=== PATIENT | male | born 1965 | race Caucasian/White ===

== ENCOUNTER → 2016-11-27 | Outpatient (CLI) | payer OTHER ==
[~2016-11-27] MED LIST: DICL50TA4 PO; FEXO180T5 PO; FLUT100D IH; LISI10TA2 PO; LOSA100T6 PO; MONT10TA9 PO; OMEP40CA5 PO; SIMV10TA3 PO; TRIA10.8 NS
--- NOTE | 2016-11-28 03:05 | PAIN ---
DATE OF SERVICE: 11/27/2016 PROGRESS NOTE DIAGNOSES: Lumbar radiculopathy with lumbar herniated disk, spinal stenosis and lumbar degenerative disk disease. HISTORY OF PRESENT ILLNESS: The patient is a 51-year-old male who returns for followup status post lumbar epidural steroid injection x 2 with very good results. The patient reports his last result was about 80% improvement in the left leg pain, in his low back. It has been returning now. His last injection was 09/03/2016. The patient reports that it was returning over the past 1-2 weeks, before that was doing quite well, had increased his daily activity with greater ease and comfort, was sleeping better at night. This has begin to return now, again with some stinging and shooting pain in the left leg, mostly in the anterior aspect of the thigh, medial thigh, to the medial lower leg below the knee. The patient reports it is only on the left side, is a 3 on a scale of 10 with a 10/10 at its worse with a shocking sensation, worse with standing, walking, changing positions, better with sitting or lying down, but again has been waking her from sleep when he lies on his left side. The patient reports no new motor or sensory deficits, no new bowel or bladder incontinence, but still traveling pain from the low back into the anterolateral aspect of the hip and into the medial and anterior thigh and medial leg below the knee. PHYSICAL EXAMINATION: VITAL SIGNS: The patient's blood pressure is 132/90, pulse 81, respirations 18, temperature is 97.7 degrees Fahrenheit, height is 5 feet 8 inches and weighs 244 pounds. GENERAL: The patient is awake, alert, oriented, appropriate, very pleasant demeanor. HEENT: Shows normocephalic, atraumatic. Extraocular movements are intact and symmetrical. Oral cavity shows mucous membranes are moist and pink. Dentition is intact. NECK: Shows anterior throat supple without palpable lymphadenopathy noted. Swallow reflex is symmetrical. Neck shows full rotation and motion of the cervical spine without difficulty. CHEST: Shows normal on inspection. Breath sounds are clear to auscultation bilaterally. HEART: Shows S1, S2 clear. No murmurs are auscultated. ABDOMEN: Obese, soft, nontender, nondistended. No palpable organomegaly is noted. No rebound or guarding demonstrated. BACK: Shows spine grossly in midline. Lumbar paraspinous musculature shows symmetrical on inspection without evidence of atrophy or hypertrophy. With palpation is moderately tender with palpation bilaterally in the middle and lower distribution of paraspinous muscles, but only diffusely without radiation or trigger points noted. No tenderness over the sacrum or sacroiliac regions. The patient's lumbar spine shows full rotation and motion both laterally as well as extension and flexion without difficulty. EXTREMITIES: Lower extremities show deep tendon reflexes at 1+ in the patellar and tendo calcaneus tendons, are equal. Motor exam is approximately 5/5 with dorsiflexion, extension, quadriceps and hamstring flexion. With straight leg raises, positive straight leg raise on the left side at about 40-45 degrees. This decreased with knee flexion, but has negative straight leg raise on the right. PLAN: Options were discussed with the patient. The patient's old chart was reviewed as his current medication regimen and updated. Current review of systems updated today as well. We will preauthorize the patient for a lumbar epidural steroid injection with fluoroscopic guidance as he has done very well with these in the past with returning radicular pain on the left side and MRI scan showing herniated disk at the L3-L4 level. The patient will maintain his stretching and strengthening exercises and walking as best he can. We also discussed some weight loss strategies with the patient. He is looking into some health clubs to help with his as well. We will follow up in approximately one week and plan on lumbar epidural steroid injection at that time. BEBO JAY MD DR: EMIL/jocelyn JOB#: [id number] / [id number]
== END | disposition home or self-care (01) ==
LOC: PNCL 10:55
PROVIDERS: ATTEND Anesthesiology
DX: M51.16 Intervertebral disc disorders with radiculopathy, lumbar region (principal); M51.26 Other intervertebral disc displacement, lumbar region; M48.06 Spinal stenosis, lumbar region
CPT/HCPCS: 99212

== ENCOUNTER → 2016-12-11 | Outpatient (CLI) | payer OTHER ==
[~2016-12-11] MED LIST changes: +IOHEXOL 180 MG/ML 10 ML VIAL. ONE; +methylPREDNISolone ACETATE 40 MG/ML VIAL. ONE; +methylPREDNISolone ACETATE 80 MG/ML VIAL. ONE
--- NOTE | 2016-12-12 04:48 | PAIN ---
DATE OF SERVICE: 12/11/2016 PROGRESS NOTE FOR PAIN CLINIC DIAGNOSES: 1. Lumbar radiculopathy with lumbar herniated disk, spinal stenosis and lumbar degenerative disk disease. 2. Left meralgia paraesthetica. HISTORY OF PRESENT ILLNESS: The patient is a 51-year-old male who returns for followup status post lumbar epidural steroid injections, most recently on 09/03/2016. The patient reports he did well with this initially, ____ a 75-80% improvement, but the pain has returned in his left leg, mostly in the anterior lateral aspect of the thigh as previous. The patient reports no new motor or sensory deficits, no new bowel or bladder incontinence. Significant pain with walking, standing. Sitting relieves the pain almost 100%. He is having occasional pain when he is lying on his left side at night and waking him from sleep with a stabbing, shooting pain in the right anterior medial thigh on the left side. The patient reports it as a high quality with sharp pains as well. The patient reports no new motor or sensory deficits, no new bowel or bladder incontinence or other complaints. PHYSICAL EXAMINATION: VITAL SIGNS: Today, the patient's blood pressure is 136/98, pulse 81, respirations 18, temperature 97.6 degrees Fahrenheit, height is 5 feet 8 inches, weight is 239 pounds. GENERAL: The patient is awake, alert, oriented, appropriate, very pleasant demeanor. HEENT: Head shows normocephalic, atraumatic. Extraocular movements are intact and symmetrical. Oral cavity shows mucous membranes moist and pink. Dentition is intact. NECK: Shows anterior throat supple without palpable lymphadenopathy noted. Swallow reflex is symmetrical. CHEST: Shows normal on inspection. Breath sounds are clear to auscultation bilaterally. HEART: Shows S1 and S2 clear. No murmurs are auscultated. ABDOMEN: Obese, soft, nontender, nondistended. No palpable organomegaly is noted. No rebound or guarding demonstrated. BACK: The patient's back shows spine grossly midline. Lumbar paraspinous muscle shows moderate tenderness with palpation bilaterally in the lower lumbar distribution and mid lumbar distribution which is firm, but without radiation, without trigger points. EXTREMITIES: The patient's lower extremities showed deep tendon reflexes at 1+ in the patellar and tendo calcaneus tendons. Motor exam is strong with 5/5 dorsiflexion, extension, quadriceps and hamstring flexion equal and symmetrical bilaterally. The patient does have an area on the left lateral and anterior thigh and the distal thigh, mostly anterior as a decreased sharp and dull discrimination about 5 x 5 cm area, but without any skin discoloration, no rashes or other abnormalities. PLAN: Options were discussed with the patient. The patient's old chart was reviewed as his current medication regimen and updated, current review of systems is updated today as well. We will proceed with the third lumbar epidural steroid injection in the series with fluoroscopic guidance. Risks were again discussed including, but not limited to bleeding, infection, possibility of epidural hematoma, subsequent neurologic compromise, dural puncture, headaches, spinal cord and/or nerve damage, side effects of steroid medication and poor results regarding pain control. The patient understands and wishes to proceed. The patient will return to clinic in approximately 2 weeks for followup, was counseled on return appointment, activity level and side effects to be aware of. Also, I discussed the patient's blood pressure and he will follow up with his primary care physician regarding this as it was 98 diastolic today and he has had similar readings in the past. DIAGNOSES: Lumbar radiculopathy with lumbar herniated disk, spinal stenosis and lumbar degenerative disk disease. PROCEDURES: Lumbar epidural steroid injection in translaminar approach at the L3-L4 level using sterile fluoroscopic guidance under sterile prep and drape with local anesthetic. Medications injected is 120 mg of Depo-Medrol plus 10 mL of preservative-free normal saline, 2 mL of Isovue for contrast. CONDITION AT DISCHARGE: Stable. The patient tolerated the procedure well, had no complications. BEBO JAY MD DR: EMIL/jocelyn JOB#: [id number] / [id number]
== END | disposition home or self-care (01) ==
LOC: PNCL 09:58
PROVIDERS: ATTEND Anesthesiology
DX: M51.16 Intervertebral disc disorders with radiculopathy, lumbar region (principal); M48.06 Spinal stenosis, lumbar region
CPT/HCPCS: 62323; J1030; J1040; 62327

== ENCOUNTER → 2017-02-10 | Outpatient (CLI) | payer OTHER ==
--- NOTE | 2017-02-11 02:24 | PAIN ---
DATE OF SERVICE: 02/10/2017 DIAGNOSES: 1. Lumbar radiculopathy with lumbar spinal stenosis, herniated lumbar disk and lumbar degenerative disk disease. 2. Left meralgia paresthetica. HISTORY OF PRESENT ILLNESS: The patient is a 51-year-old male who returns for followup status post lumbar epidural steroid injections x 3, last seen on 12/11/2016. The patient reports he did well, but the pain returns after about 2-3 weeks in his low back and his left lower extremity. We reviewed the patient's MRI and history. He does have herniated disk at L3-L4, but is more paracentral to the right side than the left. The patient reports significant pain returning after a couple of weeks from the shot into his low back, left lower extremity, mostly in the posterior gluteus, posterior lateral thigh, posterior calf, occasionally further down towards the foot, but not into the foot itself. The patient reports an aching, sharp, dull type, shooting, stabbing, burning pain, rated as 10 on a scale of 10 at its worst, is currently 3 on a scale 10 today and is much worse with standing, walking, moving, but with sitting down after about 4-5 minutes, the pain does subside almost 100%. The patient reports he has been sleeping fairly well at night, awakens him from sleep very rarely, but if he repositions or takes one of his diclofenac does seem to help. The patient reports no new motor or sensory deficits, no new bowel or bladder incontinence or other complaints. PHYSICAL EXAMINATION: VITAL SIGNS: Today, the patient's blood pressure is 135/92, pulse is 85, respirations are 18, temperature is 98.1 degrees Fahrenheit. Height is 5 feet 8 inches, weight is 235 pounds. GENERAL: The patient is awake, alert, oriented, appropriate, very pleasant demeanor. HEENT: Head shows normocephalic, atraumatic. Extraocular movements are intact and symmetrical. Oral cavity shows mucous membranes moist and pink. Dentition is intact. NECK: Shows anterior throat supple without palpable lymphadenopathy noted. Swallow reflex is symmetrical. CHEST: Shows normal on inspection. Breath sounds are clear to auscultation bilaterally. HEART: Shows S1, S2 clear. ABDOMEN: Obese, soft, nontender, nondistended. No palpable organomegaly is noted. No rebound or guarding demonstrated. BACK: Shows spine grossly in midline with some flattening of lumbar lordotic curvature. No evidence of scars are noted. With palpation, shows normal muscle girth with firm musculature bilaterally without radiation and appears roughly symmetrical. No tenderness over the sacrum or sacroiliac regions. No difficulty with rotation of movement both laterally as well as extension and flexion. EXTREMITIES: Lower extremities showed deep tendon reflexes at 1+ in the patellar and tendo calcaneus tendons are equal. Motor exam is 5/5 with dorsiflexion, extension, quadriceps and hamstring flexion and symmetrical as well. Options were discussed with the patient. The patient's old chart was reviewed as his current medication regimen updated. Current review of systems updated today as well and we will proceed with a lumbar epidural steroid injection as the first in this series with fluoroscopic guidance today. Risks were again discussed including, but not limited to bleeding, infection, possibility of epidural hematoma and subsequent neurologic compromise, dural puncture, headaches, spinal cord and/or nerve damage, side effects of steroid medication and poor results regarding pain control. The patient understands and wishes to proceed. The patient will return to clinic in approximately 2 weeks for followup, was counseled on return appointment, activity level and side effects to be aware of. DIAGNOSIS: Lumbar radiculopathy with lumbar spinal stenosis, herniated disk and lumbar degenerative disk disease. PROCEDURE: Lumbar epidural steroid injection in translaminar approach at the L3-L4 level using C-arm fluoroscopic guidance under sterile prep and drape using local anesthetic. MEDICATION INJECTED: 120 mg Depo-Medrol plus 10 mL preservative-free normal saline and 2 mL Isovue for contrast. CONDITION AT DISCHARGE: Stable. The patient tolerated procedure well, had no complications. BEBO JAY MD DR: EMIL/jocelyn JOB#: [id number] / [id number]
== END | disposition home or self-care (01) ==
LOC: PNCL 13:04
PROVIDERS: ATTEND Anesthesiology
DX: M51.16 Intervertebral disc disorders with radiculopathy, lumbar region (principal); M48.06 Spinal stenosis, lumbar region
CPT/HCPCS: 62323; J1030; J1040

== ENCOUNTER → 2021-12-27 | Outpatient (CLI) | payer OTHER ==
[~2021-12-27] MED LIST changes: +AMLO-186 PO; +FEXO-212 PO; -FEXO180T5 PO; -FLUT100D IH; +FLUT100D2 IH; +INDO50CA15 PO; -IOHEXOL 180 MG/ML 10 ML VIAL. ONE; +IRBE300T23 PO; +LISD60CA PO; +LISI10TA16 PO; -LISI10TA2 PO; +LOSA100T14 PO; -LOSA100T6 PO; +MELO15TA23 PO; +MONT10TA49 PO; -MONT10TA9 PO; -OMEP40CA5 PO; +OMEP40CA7 PO; +SIMV10TA15 PO; -SIMV10TA3 PO; -methylPREDNISolone ACETATE 40 MG/ML VIAL. ONE; -methylPREDNISolone ACETATE 80 MG/ML VIAL. ONE
--- NOTE | 2021-12-27 16:52 | PDOC1 ---
INITIAL PAIN CONSULT DATE OF SERVICE: DOS: DATE: 12/27/21 TIME: 16:44 CHIEF COMPLAINT: Chief Complaint: Low back and left lower extremity pain HISTORY OF PRESENT ILLNESS: 56-year-old male presents history of pain low back left lower extremity for several years worse over the past year or so recently had undergone physical therapy as well as trigger point injections and is doing exercise currently patient has recently seen his neurosurgeon who is recommending nonsurgical treatments at this time. Patient reports the pain is in the low back left lower extremity posterior gluteus lateral thigh anterior thigh medial thigh medial lower leg on the left side as well as across the low back patient reports its constant in the lower back stabbing in the back shooting in the leg tingling and numbness in the leg and foot at times on the left side patient reports burning cramping and aching as well worse with walking standing changing positions better with sitting or laying down but wakes him from sleep about 3-5 times a night patient reports it does not affect his bowel bladder control does affect his ability to walk fairly significantly but is not use any assistive devices, reports that he is limping which is making his right side hurt to some extent in the hip. Patient is taking oral analgesics anti-inflammatories [id number]-kyaxzia Motrin as well as Tylenol for pain which is not reducing the pain with any significance. Patient rates disability rating 0-10 10 being the worst is an 8 with family responsibilities and recreation and occupation and left foot activities 7-8 with self-care 9-10 with social activity 5 with sexual behavior. Patient did have an MRI scan of the lumbar spine showing progression of degenerative findings since 2016 with anterolisthesis of S1 on S2 marked left and moderate right foraminal neuroforaminal stenosis with marked central spinal stenosis at L4-5 posterior broad-based disc extrusion present at this level. Patient also shows moderate left and mild right neuroforaminal stenosis at L3-4 marked right and mild left neuroforaminal stenosis at L5-S1. Patient reports no loss of motor function but has significant fatigability with walking even more than about 10 to 15 minutes or standing for more than 10 minutes with the left leg. PAST MEDICAL HISTORY: PMH: Hypertension, arthritis PREVIOUS SURGERIES: Past Surgical Hx: Nasal surgery 2019 CURRENT MEDICATIONS: Current Meds: Active Scripts Medications Dose Route/Sig Max Daily Dose Days Date Category Irbesartan 300 Mg Tablet 1 Tab PO DAILY 12/27/21 Reported Simvastatin 10 Mg Tablet 1 Tab PO QHS 12/27/21 Reported Amlodipine Besylate 5 Mg Tablet 5 Mg PO DAILY 12/27/21 Reported Vyvanse (Lisdexamfetamine Dimesylate) 60 Mg Capsule 1 Cap PO DAILYWBKFT MDD 1 Capsule(s) 5 12/27/21 Reported Indomethacin 50 Mg Capsule 50 Mg PO BID 12/27/21 Reported Simvastatin 10 Mg Tablet 1 Tab PO QHS 08/01/16 Reported Omeprazole 40 Mg Capsule.dr 1 Cap PO DAILY 08/01/16 Reported ALLERGIES; Allergies: Coded Allergies: azithromycin (Unverified Allergy, Intermediate, Swelling, 08/01/16) FAMILY HISTORY: Family Hx: Parkinson's disease in patient's father. SOCIAL HISTORY: Social Hx: Patient is alcohol about 3-4 drinks once a week does not smoke not use any illegal licit recreational drugs is single lives locally in [facility], and works for [employer]. REVIEW OF SYSTEMS: ROS: Positive for those items mentioned in history of present illness, all systems are reviewed, otherwise negative ,and are complete full and well-documented on patient's chart. PHYSICAL EXAM: VS: Blood pressure is 140/99 pulse 83 respirations 18 temperature 97.6 F height is 5 feet 8 inches weight is 245 pounds. PE: PHYSICAL EXAMINATION: GENERAL: The patient is awake, alert, oriented, appropriate, very pleasant in demeanor HEENT: Shows normocephalic, atraumatic. Extraocular movements are intact and symmetrical. Patient wearing eyeglasses. Oral cavity: Mucous membranes moist and pink. Dentition is intact. NECK: Shows anterior throat supple without palpable lymphadenopathy noted. Swallow reflex symmetrical. CHEST: Shows normal on inspection. Breath sounds are clear bilaterally, distant but no rales rhonchi wheezes auscultated. HEART: Shows S1, S2 clear. No murmurs auscultated. ABDOMEN: Soft, nontender, nondistended. No palpable organomegaly is noted. BACK: Shows spine grossly in the midline. Normal-appea 4 ring cervical lordotic curvature. There is mildly increased thoracic kyphosis, some mild flattening of the lumbar lordotic curvature. Lumbar paraspinous muscles show symmetrical on inspection, on palpation shows some moderate tenderness diffusely throughout the upper, middle and lower distribution of the paraspinous muscles bilaterally and also into the lower thoracic paraspinous musculature, firm and tender, but without specific trigger points, without radiation of pain. The patient has good rotational motion of the lumbar spine, both laterally as well as extension and flexion without significant difficulty. No tenderness over the spinous processes, sacrum or sacroiliac regions. EXTREMITIES: Lower extremities show deep tendon reflexes 2+ in the patellar and tendo calcaneus tendons. Motor exam is 5 on a scale of 5 with right dorsiflexion, extension, quadriceps and hamstring flexion and 4/5 on the left. Peripheral pulses are 1 posterior tibial. No peripheral edema is noted bilatera lly. Lower extremities are warm and dry to touch, equal in color and appearance. Straight leg raise noted to be positive on the left at approximate 40 degrees, decreased with knee flexion, right side is negative. Gaenslen's and Jaime's maneuvers are needed bilaterally. The patient is able to stand, stand on his toes without significant difficulty or loss of balance walks with a slight favoring gait does favor the left lower extremity but not use any assistive devices such as canes or walkers to ambulate. SKIN: Shows warm and dry, good turgor. No edema. No sores, rashes or bruising throughout. IMPRESSION: Impression: 56-year-old male with long history of low back left lower extremity pain in a radicular fashion following an L4-5 dermatomal distribution. MRI scan lumbar spine as noted Hypertension Obesity Arthritis Plan: Options were discussed with the patient including conservative medical managements continued physical therapies and interventional techniques. Patient would like to pursue interventional techniques as he is done physical therapies is doing stretching 3 exercises currently as well as oral analgesics without significant reduction in pain. We discussed a lumbar epidural steroid injection using description as well as anatomical models to describe the procedure. Patient would like to wait for preauthorization with insurance provider, once obtained we will have patient return for translaminar approach L4-5 level lumbar epidural steroid injection with fluoroscopic guidance at that time. In the meantime patient continue with stretching strength exercise as well as oral analgesics as currently. BEBO JAY MD Dec 27, 2021 16:52
== END | disposition home or self-care (01) ==
LOC: PNCL 14:27
PROVIDERS: ATTEND Anesthesiology
DX: M54.50 Low back pain, unspecified (principal); M79.605 Pain in left leg; I10 Essential (primary) hypertension; E66.9 Obesity, unspecified; M19.90 Unspecified osteoarthritis, unspecified site; Z79.899 Other long term (current) drug therapy; Z98.890 Other specified postprocedural states; Z88.1 Allergy status to other antibiotic agents
CPT/HCPCS: 99205; G0463

== ENCOUNTER → 2022-01-10 | Outpatient (CLI) | payer OTHER ==
[~2022-01-10] MED LIST changes: +DEXAMETHASONE PRES.FREE 10 MG/ML VIAL. ONE; -FEXO-212 PO; +FEXO-213 PO; +IOHEXOL 180 MG/ML 10 ML VIAL. ONE
--- NOTE | 2022-01-10 09:40 | PDOC ---
Progress Note - Pain Clinic Date of Service: DOS: DATE: 01/10/22 TIME: 09:37 Diagnosis: Dx: Lumbar radiculopathy with lumbar degenerative disc disease and lumbar spinal stenosis History or Present Illness: HPI: 56-year-old male returns with complaints of low back and left lower extremity pain across the low back and left lower extremity posterior gluteus posterior lateral thigh lateral anterior thigh anteromedial thigh medial calf on the left side also some pain in the calf on the right side patient reports aching and tight shooting tingling can be burning cramping and stabbing unbearable at times worse with weightbearing walking and standing better with sitting or laying down wakes him from sleep occasionally but not every night. Patient reports a 10 on scale 10 is worse over the past week 8 on average 6 its least and 8 today. Patient reports no bowel or bladder incontinence. We had prescribed anti- inflammatory meloxicam although it was making him nauseated he reports and has the bottle with him today where he is taken about half of it but has some significant nausea although pain was decreased with it we discussed this in further detail and will change to a new medication will be prescribed today of diclofenac 50 mg 1 p.o. twice daily. Patient given instructions well side effects beware with medication to see if this will work better without any significant side effects. Physical Exam: VS: Blood pressure is 151/94 pulse 84 respirations 18 temperature 98.5 F height is 5 foot 8 inches weight is 243 pounds. PE: PHYSICAL EXAMINATION: GENERAL: The patient is awake, alert, oriented, appropriate, very pleasant in demeanor HEENT: Shows normocephalic, atraumatic. Extraocular movements are intact and symmetrical. Patient wearing eyeglasses. Oral cavity: Mucous membranes moist and pink. Dentition is intact. NECK: Shows anterior throat supple without palpable lymphadenopathy noted. Swallow reflex symmetrical. CHEST: Shows normal on inspection. Breath sounds are clear bilaterally. HEART: Shows S1, S2 clear. No murmurs auscultated. ABDOMEN: Soft, nontender, nondistended. No palpable organomegaly is noted. BACK: Shows spine grossly in the midline. Normal-appearing cervical lordotic curvature. There is slightly increased thoracic kyphosis, some mild flattening of the lumbar lordotic curvature. Lumbar paraspinous muscles show symmetrical on inspection, on palpation shows some moderate tenderness diffusely throughout the upper, middle and lower distribution of the paraspinous muscles without specific trigger points, without radiation of pain. The patient has good rotational motion of the lumbar spine, both laterally as well as extension and flexion without significant difficulty. No tenderness over the spinous processes, sacrum or sacroiliac regions. EXTREMITIES: Lower extremities show deep tendon reflexes 2+ in the patellar and tendo calcaneus tendons. Motor exam is 5 on a scale of 5 with right dorsiflexion, extension, quadriceps and hamstring flexion and 4/5 on the left. Peripheral pulses are 1+ posterior tibial. No peripheral edema is noted bilaterally. Lower extremities are warm and dry to touch, equal in color and appearance. SKIN: Shows warm and dry, good turgor. No edema. No sores, rashes or bruising throughout. Procedure: Procedure: Options were discussed with the patient. Patient's old chart was reviewed as his current medication regimen updated current review of systems updated today as well. We will proceed with a lumbar epidural steroid injection today with fluoroscopic guidance. Risks were discussed including but not limited to: Bleeding, infection, possibility of epidural hematoma and subsequent neurological compromise, dural puncture, headaches, spinal cord and/or nerve damage, side effects of steroid medication, and poor results regarding pain control. Patient understands and wished to proceed. Patient will return to clinic in approximately 2 weeks for follow-up, was counseled as to return appointment, activity level, and side effect to be aware of. We will prescribe new prescription medication of diclofenac 50 mg twice daily, patient was given instructions well side effects beware of with the new medication. Medication Injected: Med Injected: Procedure is lumbar epidural steroid injection under local anesthetic using sterile prep and drape at the L4-5 level using C-arm fluoroscopic guidance in both AP and lateral views medications injected is 20 mg dexamethasone +10mL preservative-free normal saline and 2 mL contrast- condition at discharge is stable patient tolerated procedure well had no complications. Condition at Discharge: Condition at Discharge: Condition at discharge stable, paced tolerated procedure well and had no complications. BEBO JAY MD Jan 10, 2022 09:40
--- NOTE | 2022-01-10 09:41 | PDOC4 ---
Procedure Note: ICD 10 Code: ICD 10 Code: M 54.16 M51.36 M4 8.06 Procedure Note: Patient was consented for lumbar epidural steroid injection with fluoroscopic guidance. Risks were discussed including but not limited to: Bleeding, infection, possibility of epidural hematoma and subsequent neurological compromise, dural puncture, headaches, spinal cord and/or nerve damage, side effects of steroid medication, and poor results regarding pain control. Patient understands and wished to proceed. Procedure is lumbar epidural steroid injection under local anesthetic using st erile prep and drape at the L4-5 level using C-arm fluoroscopic guidance in both AP and lateral views medications injected is 20 mg dexamethasone +10mL preservative-free normal saline and 2 mL contrast- condition at discharge is stable patient tolerated procedure well had no complications. BEBO JAY MD Jan 10, 2022 09:41
== END | disposition home or self-care (01) ==
LOC: PNCL 08:53
PROVIDERS: ATTEND Anesthesiology
DX: M51.16 Intervertebral disc disorders with radiculopathy, lumbar region (principal); M48.061 Spinal stenosis, lumbar region without neurogenic claudication; Z79.899 Other long term (current) drug therapy; Z88.1 Allergy status to other antibiotic agents
CPT/HCPCS: 62323; J1100; Q9965

== ENCOUNTER → 2022-01-17 | Outpatient (CLI) | payer OTHER ==
[~2022-01-17] MED LIST changes: -DEXAMETHASONE PRES.FREE 10 MG/ML VIAL. ONE; -IOHEXOL 180 MG/ML 10 ML VIAL. ONE
--- NOTE | 2022-01-17 13:48 | PDOC ---
Progress Note - Pain Clinic Date of Service: DOS: DATE: 01/17/22 TIME: 13:45 Diagnosis: Dx: Lumbar radiculopathy with lumbar degenerative disease and lumbar spinal stenosis History or Present Illness: HPI: 56-year-old male returns for follow-up status post lumbar epidural steroid injection x1. Patient reports about 70% improvement initially with the pain in his low back and left lower extremity now beginning to return to a down about a 50 to 60% level improvement but overall much improved patient reports he did increase his distance walking for greater distances greater ability to perform work activities as well as household activities sleeping better at night is not taking as many [id number] anti-inflammatories and has been able to tolerate riding in a car much longer periods with greater ease and comfort patient reports he is sleeping better at night it still wakes him from sleep over the past few days about every 6 hours or so but he can use repositioning back to sleep. Patient reports his pain is beginning to return however in the low back in the left lower extremity posterior gluteus posterior lateral thigh lateral anterior thigh anteromedial thigh with numbness and tingling in the left leg as well some pain in the right calf but mostly on the left side patient r eports is aching and tight in the back tingling burning cramping and stabbing radiating can be constant with extended standing more than about 20 minutes and shooting in the left leg as well. Patient reports no bowel or bladder incontinence function is significant fatigability with left lower extremity with extended walking or standing. Physical Exam: VS: Blood pressure is 135/84 pulse 90 respirations 18 temperature 98.1 F weight is 245 pounds. PE: PHYSICAL EXAMINATION: GENERAL: The patient is awake, alert, oriented, appropriate, very pleasant in demeanor HEENT: Shows normocephalic, atraumatic. Extraocular movements are intact and symmetrical. Patient wearing eyeglasses. Oral cavity: Mucous membranes moist and pink. Dentition is intact. NECK: Shows anterior throat supple without palpable lymphadenopathy noted. Swallow reflex symmetrical. CHEST: Shows normal on inspection. Breath sounds are clear bilaterally, distant but no rales rhonchi or wheezes auscultated. HEART: Shows S1, S2 clear. No murmurs auscultated. ABDOMEN: Soft, nontender, nondistended. No palpable organomegaly is noted. BACK: Shows spine grossly in the midline. Normal-appearing cervical lordotic curvature. There is slightly increased thoracic kyphosis, some mild flattening of the lumbar lordotic curvature. Lumbar paraspinous muscles show symmetrical on inspection, on palpation shows some moderate tenderness diffusely throughout the upper, middle and lower distribution of the paraspinous muscles, but without specific trigger points, without radiation of pain. The patient has good rotational motion of the lumbar spine, both laterally as well as extension and flexion without significant difficulty. No tenderness over the spinous p rocesses, sacrum or sacroiliac regions. EXTREMITIES: Lower extremities show deep tendon reflexes 2+ in the patellar and tendo calcaneus tendons. Motor exam is 5 on a scale of 5 with right dorsiflexion, extension, quadriceps and hamstring flexion and 4/5 on the left. Peripheral pulses are 1+ posterior tibial. No peripheral edema is noted bilaterally. Lower extremities are warm and dry to touch, equal in color and appearance. Straight leg raise noted to be positive on the left at about 40 degrees, decreased knee flexion right side is negative. SKIN: Shows warm and dry, good turgor. No edema. No sores, rashes or bruising throughout. Procedure: Procedure: Options were discussed with the patient. Patient chart was reviewed his his current medication regimen updated current review of systems updated today as well. We will preoperative patient for second lumbar epidural steroid injection did very well after the first injection with the pain returning now following an L4-5 dermatomal distribution in the left lower extremity. In the meantime, patient will continue with stretching and strengthening exercises as currently as well as oral analgesics as necessary. Once approved, patient will return for translaminar approach L4-5 lumbar epidural steroid injection with fluoroscopic guidance. Medication Injected: Med Injected: None Condition at Discharge: Condition at Discharge: Condition at discharge is stable. BEBO JAY MD Jan 17, 2022 13:48
== END | disposition home or self-care (01) ==
LOC: PNCL 13:06
PROVIDERS: ATTEND Anesthesiology
DX: M51.16 Intervertebral disc disorders with radiculopathy, lumbar region (principal); M48.061 Spinal stenosis, lumbar region without neurogenic claudication; Z79.899 Other long term (current) drug therapy; Z88.1 Allergy status to other antibiotic agents
CPT/HCPCS: 99212; G0463

== ENCOUNTER → 2022-01-31 | Outpatient (CLI) | payer OTHER ==
[~2022-01-31] MED LIST changes: +DEXAMETHASONE PRES.FREE 10 MG/ML VIAL. ONE; +IOHEXOL 180 MG/ML 10 ML VIAL. ONE
--- NOTE | 2022-01-31 10:21 | PDOC ---
Progress Note - Pain Clinic Date of Service: DOS: DATE: 01/31/22 TIME: 10:17 Diagnosis: Dx: Lumbar radiculopathy with lumbar degenerative disease and lumbar spinal stenosis History or Present Illness: HPI: 56-year-old male returns for follow-up status post lumbar epidural steroid injection x160% improvement patient reports pain returning low back and left lower extremity posterior gluteus posterior lateral thigh lateral anterior thigh anteromedial thigh medial lower leg with walking standing patient reports was doing better is still significantly painful with radiating pain in the left leg patient rates as a 10 on scale 10 is worse over the past week 6 on average 3 to [place] is a 6 today patient scribes pain is sharp in the back tingling burning stabbing and shooting in the leg worse with walking standing changing positions better with sitting or laying down generally does not awaken her from sleep at night. Patient reports no bowel or bladder incontinence no loss of motor function but significant fatigability of the left lower extremity with ambulation. 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 Patient reports is getting worse with activity reaching gripping items twisting items such as lids on jars and doing household activities as well as work activities is becoming much more noticeable and painful without any specific motor loss in the right hand. Physical Exam: VS: Blood pressure is 135/86 pulse 87 respirations 18 temperature 97.9 F weight is 245 pounds. PE: PHYSICAL EXAMINATION: GENERAL: The patient is awake, alert, oriented, appropriate, very pleasant in demeanor HEENT: Shows normocephalic, atraumatic. Extraocular movements are intact and symmetrical. Oral cavity: Mucous membranes moist and pink. Dentition is intact. NECK: Shows anterior throat supple without palpable lymphadenopathy noted. Swallow reflex symmetrical. CHEST: Shows normal on inspection. Breath sounds are clear bilaterally. HEART: Shows S1, S2 clear. No murmurs auscultated. ABDOMEN: Soft, nontender, nondistended. No palpable organomegaly is noted. BACK: Shows spine grossly in the midline. Normal-appearing cervical lordotic curvature. There is mildly increased thoracic kyphosis, some flattening of the lumbar lordotic curvature. Lumbar paraspinous muscles show symmetrical on inspection, on palpation shows some moderate tenderness diffusely throughout the upper, middle and lower distribution of the paraspinous muscles, but without specific trigger points, without radiation of pain. The patient has good rotational motion of the lumbar spine, both laterally as well as extension and flexion without significant difficulty. EXTREMITIES: Lower extremities show deep tendon reflexes 2+ in the patellar and tendo calcaneus tendons. Motor exam is 5 on a scale of 5 with right dorsiflexion, extension, quadriceps and hamstring flexion and 4/5 on the left. Peripheral pulses are 1+ posterior tibial. No peripheral edema is noted bilaterally. Lower extremities are warm and dry to touch, equal in color and appearance. Upper extremities are deep and reflexes 2+ in the bicep tricep tendons, motor exam strong with microelectronics assembler strength rated 5 out of 5 as is bicep tricep flexion. Patient's right hand shows significant tenderness over the carpometacarpal joint in the lateral aspect as well as the medial aspect of the joint itself also with thumb to fifth finger opposition very difficult to perform and painful at that joint as well. SKIN: Shows warm and dry, good turgor. No edema. No sores, rashes or bruising throughout. Procedure: Procedure: Options discussed with the patient. Patient chart was reviewed his current medication regimen updated current review of systems updated today as well. We will proceed with a lumbar epidural steroid injection today with fluoroscopic guidance. Risks were discussed including but not limited to: Bleeding, infection, possibility of epidural hematoma and subsequent neurological comprom ise, dural puncture, headaches, spinal cord and/or nerve damage, side effects of steroid medication, and poor results regarding pain control. Patient understands and wished to proceed. Patient will return to the clinic in approximately 2 weeks for follow-up, was counseled as to return appointment, active level, and side effect to be aware of. Also we will preauthorize patient for right first carpometacarpal joint injection with diagnosis of osteoarthritis in this joint, status post therapy and consultation with hand surgeon recommending no surgical interventions. Medication Injected: Med Injected: Procedure is lumbar epidural steroid injection under local anesthetic using sterile prep and drape at the L4-5 level using C-arm fluoroscopic guidance in both AP and lateral views medications injected is 20 mg dexamethasone +10mL preservative-free normal saline and 2 mL contrast- condition at discharge is stable patient tolerated procedure well had no complications. Condition at Discharge: Condition at Discharge: Condition at discharge is stable, patient tolerated the procedure well and had no complications. BEBO JAY MD Jan 31, 2022 10:21
--- NOTE | 2022-01-31 10:21 | PDOC4 ---
Procedure Note: ICD 10 Code: ICD 10 Code: M54.16 M51.36 M48.06 Procedure Note: Patient was consented for lumbar epidural steroid injection with fluoroscopic guidance. Risks were discussed including but not limited to: Bleeding, infection, possibility of epidural hematoma and subsequent neurological compromise, dural puncture, headaches, spinal cord and/or nerve damage, side effects of steroid medication, and poor results regarding pain control. Patient understands and wished to proceed. Procedure is lumbar epidural steroid injection under local anesthetic using ster ile prep and drape at the L4-5 level using C-arm fluoroscopic guidance in both AP and lateral views medications injected is 20 mg dexamethasone +10mL preservative-free normal saline and 2 mL contrast- condition at discharge is stable patient tolerated procedure well had no complications. BEBO JAY MD Jan 31, 2022 10:21
== END | disposition home or self-care (01) ==
LOC: PNCL 09:12
PROVIDERS: ATTEND Anesthesiology
DX: M51.16 Intervertebral disc disorders with radiculopathy, lumbar region (principal); M48.061 Spinal stenosis, lumbar region without neurogenic claudication; Z79.899 Other long term (current) drug therapy; Z88.1 Allergy status to other antibiotic agents
CPT/HCPCS: 62323; J1100; Q9965

== ENCOUNTER → 2022-02-14 | Outpatient (CLI) | payer OTHER ==
[~2022-02-14] MED LIST changes: +BUPIVACAINE MPF 0.25% 10 ML VIAL. ONE; -DEXAMETHASONE PRES.FREE 10 MG/ML VIAL. ONE
--- NOTE | 2022-02-14 11:20 | PDOC ---
Progress Note - Pain Clinic Date of Service: DOS: DATE: 02/14/22 TIME: 11:12 Diagnosis: Dx: Lumbar radiculopathy with lumbar degenerative disease and lumbar spinal stenosis Right wrist pain with osteoarthritis first carpal metacarpal joint History or Present Illness: HPI: 56-year-old male returns for follow-up status post lumbar epidural steroid injection with good results about 75% improvement initially with pain returning in the low back into the left lower extremity and lateral and posterior aspect of the thigh lateral medial thigh medial lower leg and medial knee patient reports it was getting better but the pain is returning now in the low back and left lower extremity radicular fashion following L4-5 dermatomal distribution. Patient chief complaint today however is right wrist pain and we had awaited preauthorization with insurance provider for injection of the first carpometacarpal joint. Patient reports the pain in the wrist is a 10 on scale 10 is worse over the past week 5-6 on average 3 to [place] is a 6 today. Patient was tight stabbing on and off in intensity burning in the wrist worse with repetitive motions lifting writing and working. Patient reports no loss of motor function with significant fatigability and significant pain sharp in the right wrist at the base of the thumb. She reports no motor deficits no bowel or bladder incontinence. Physical Exam: VS: Blood pressure is 123/85 pulse 88 respirations 18 temperature 98.4 F weight is 244 pounds. PE: PHYSICAL EXAMINATION: GENERAL: The patient is awake, alert, oriented, appropriate, very pleasant in demeanor HEENT: Shows normocephalic, atraumatic. Extraocular movements are intact and symmetrical. Oral cavity: Mucous membranes moist and pink. Dentition is intact. NECK: Shows anterior throat supple without palpable lymphadenopathy noted. Swallow reflex symmetrical. CHEST: Shows normal on inspection. Breath sounds are clear bilaterally. HEART: Shows S1, S2 clear. No murmurs auscultated. ABDOMEN: Soft, nontender, nondistended. No palpable organomegaly is noted. BACK: Shows spine grossly in the midline. Normal-appearing cervical lordotic curvature. There is slightly increased thoracic kyphosis, some minor flattening of the lumbar lordotic curvature. Lumbar paraspinous muscles show symmetrical on inspection, on palpation shows some moderate tenderness diffusely throughout the upper, middle and lower distribution of the paraspinous muscles, but without specific trigger points, without radiation of pain. The patient has good rotational motion of the lumbar spine, both laterally as well as extension and flexion without significant difficulty. EXTREMITIES: Lower extremities show deep tendon reflexe 2+ in the patellar and tendo calcaneus tendons. Motor exam is 5 on a scale of 5 with right dorsiflexion, extension, quadriceps and hamstring flexion and 4/5 on the left. Peripheral pulses are 1+ posterior tibial. No peripheral edema is noted bilaterally. Lower extremities are warm and dry. Upper extremities show deep tendon reflexes 2+ in the bicep triceps tendons, motor exam is strong with over short and damage clerk strength rated 5 out of 5 on the left 4-5 on the right. Patient's right wrist shows significant tenderness over the first carpometacarpal joint with direct palpation of significant tenderness but without significant radiation. Patient shows good range of motion however with the thumb to finger opposition and flexion extension of the thumb but with some moderate pain described at the base of the thumb. SKIN: Shows warm and dry, good turgor. No edema. No sores, rashes or bruising throughout. Procedure: Procedure: Options were discussed with the patient. Patient's old chart was reviewed his current medication regimen updated current review of systems updated today as well. We will proceed with a right first carpometacarpal joint injection today with fluoroscopic guidance. Risks discussed including but not limited to bleeding infection possibility of intravascular injection sequelae spread of local anesthetic and numbness side effects steroid medication exposure fluoroscopy and poor results regarding pain control. Patient understands wished to proceed. Medication Injected: Med Injected: Patient sitting position under sterile prep and drape patient's right wrist was visualized using fluoroscopic guidance and using a 25-gauge needle the first carpometacarpal joint was entered under direct visualization. Aspiration was noted to be negative and 0.5 cc of contrast was injected with good spread within the first carpometacarpal joint space without washout. At this time total of 2 cc 0.25 bupivacaine and 10 mg dexamethasone was then injected into the joint. Needle was withdrawn and sterile bandage was applied. Patient tolerated the procedure well and had no complications. Condition at Discharge: Condition at Discharge: Condition at discharge stable, patient tolerated the procedure well and had no complications. BEBO JAY MD February 14, 2022 11:20
--- NOTE | 2022-02-14 11:21 | PDOC4 ---
Procedure Note: ICD 10 Code: ICD 10 Code: M18.11 Procedure Note: Patient is consented for right carpometacarpal joint injection with fluoroscopic guidance. Risks discussed including but not limited to bleeding infection possibility of intravascular injection sequelae spread of local anesthetic numbness side effects steroid medication exposure to fluoroscopy and poor results regarding pain control. Patient understands wishes to proceed. Patient sitting position under sterile prep and drape patient's right wrist was visualized using fluoroscopic guidance and using a 25-gauge needle the first carpometacarpal joint was entered under direct visualization. Aspiration was noted to be negative and 0.5 cc of contrast was injected with good spread within the first carpometacarpal joint space without washout. At this time total of 2 cc 0.25 bupivacaine and 10 mg dexamethasone was then injected into the joint. Needle was withdrawn and sterile bandage was applied. Patient tolerated the procedure well and had no complications. BEBO JAY MD February 14, 2022 11:21
== END | disposition home or self-care (01) ==
LOC: PNCL 09:50
PROVIDERS: ATTEND Anesthesiology
DX: M18.11 Unilateral primary osteoarthritis of first carpometacarpal joint, right hand (principal); M51.16 Intervertebral disc disorders with radiculopathy, lumbar region; M48.061 Spinal stenosis, lumbar region without neurogenic claudication; M25.531 Pain in right wrist; Z79.899 Other long term (current) drug therapy; Z88.1 Allergy status to other antibiotic agents
CPT/HCPCS: 20605; 77002; J3490; Q9965